=== PATIENT | female | born 1980 | race American Indian/Alaskan Native ===

== ENCOUNTER 2018-01-01 23:41 | Emergency (ER) | payer SELFPAY ==
[2018-01-02] MEDS ORDERED: XYLOCAINE 1% 20 mL INFILTRATI ONE (00:55)
[2018-01-02] MEDS ORDERED: VALIUM IV ONE (00:55)
[2018-01-02] MEDS ORDERED: ATIVAN ONE (01:02)
--- NOTE | 2018-01-02 01:02 | XRay Report ---
FINAL REPORT EXAM: XR SHOULDER 2+V RT HISTORY: right shoulder pain s/p fall, severe TECHNIQUE: Three views of the right shoulder: AP internal, external and transscapular Y projections. PRIORS: None. FINDINGS: There is no acute fracture. The right humeral head is anteriorly and inferiorly dislocated relative to the glenoid. There is no definite osseous Bankart or Hill-Sachs injury on the current exam. The coracoclavicular and acromioclavicular intervals are maintained and there is no significant degenerative or inflammatory arthropathy identified. IMPRESSION: Anterior right shoulder dislocation, no acute fracture identified. Follow-up radiographs after clinical reduction recommended.
--- NOTE | 2018-01-02 01:07 | Emergency Department Report ---
ED Upper Extremity Inj HPI - General Chief Complaint: Extremity Injury, Upper Stated Complaint: DISLOCATED SHOULDER, CHEST PAIN FOOR PAIN Time Seen by Provider: 01/02/18 00:40 Source: patient Mode of arrival: Ambulatory Limitations: No Limitations - History of Present Illness Initial Comments: Fell backwards down the steps and had pain in her right shoulder. She got onto steps. Afterwards, she was unable to move her right arm without intense pain. She has never disappears short of before. [id number]. No loss of consciousness. - Related Data Previous Rx's Medication Instructions Recorded Last Taken Type RX: traMADol [Ultram 50 MG tab] 50 mg PO Q6HR PRN #6 tablet 01/02/18 Unknown Rx Allergies Allergy/AdvReac Type Severity Reaction Status Date / Time No Known Allergies Allergy Unverified 01/02/18 00:23 ED Review of Systems ROS: Stated complaint: DISLOCATED SHOULDER, CHEST PAIN FOOR PAIN Other details as noted in HPI Respiratory: denies: cough, shortness of breath, wheezing Cardiovascular: denies: chest pain, palpitations Musculoskeletal: arthralgia, myalgia Skin: denies: rash, lesions Neurological: denies: headache, weakness, paresthesias ED Past Medical Hx - Past Medical History Previous Medical History?: Yes Hx Asthma: Yes - Surgical History Past Surgical History?: Yes Additional Surgical History: ACLB/L knees - Social History Smoking Status: Never Smoker Substance Use Type: None - Medications Home Medications: Home Medications Medication Instructions Recorded Confirmed Last Taken Type RX: traMADol [Ultram 50 MG tab] 50 mg PO Q6HR PRN #6 tablet 01/02/18 Unknown Rx ED Physical Exam - General Limitations: No Limitations General appearance: alert, in no apparent distress - Head Head exam: Present: atraumatic, normocephalic - Eye Eye exam: Present: normal appearance - ENT ENT exam: Present: mucous membranes moist - Neck Neck exam: Present: normal inspection - Respiratory Respiratory exam: Present: normal lung sounds bilaterally. Absent: respiratory distress - Cardiovascular Cardiovascular Exam: Present: regular rate, normal rhythm. Absent: systolic murmur, diastolic murmur, rubs, gallop - GI/Abdominal GI/Abdominal exam: Present: soft, normal bowel sounds - Extremities Exam Extremities exam: Present: normal inspection - Expanded Upper Extremity Exam Right Shoulder Exam: Present: tenderness, deformity, dislocation Vascular: Present: normal capillary refill, radial pulse - Back Exam Back exam: Present: normal inspection - Neurological Exam Neurological exam: Present: alert, oriented X3 - Psychiatric Psychiatric exam: Present: normal affect, normal mood - Skin Skin exam: Present: warm, dry, intact, normal color. Absent: rash ED Course Vital Signs 01/02/18 01/02/18 00:17 01:25 Temperature 98.0 F Pulse Rate 83 80 Respiratory 20 16 Rate Blood Pressure 104/70 O2 Sat by Pulse 100 99 Oximetry - Orthopedic Joint Reduction Joint #1 Consent Obtained: written consent Time Out Performed: Yes Side: right Joint Reduction Location: shoulder Analgesia: other (1 mg ativan) Local Anesthetic Used: Lidocaine 1% Shoulder Technique Used (if applicable): traction/counter-traction, external rotation Post-Reduction Neuro Exam: intact Post-Reduction Vascular Exam: intact Post Reduction X-Ray Obtained: Yes Post Reduction X-Ray Results: reduced Splint Applied: Yes Patient Tolerated Procedure: well, no complications ED Medical Decision Making - Medical Decision Making 37-year-old female in no significant past medical history presents with right anterior shoulder dislocation. Patient was neurovascularly intact. There is reduced at the bedside using traction countertraction and external rotation. Postreduction films confirmed reduction. Patient was placed in sling and swath. She was given orthopedic follow-up. Repeat neuro neurovascular exam was intact. Clear for discharge. - Differential Diagnosis fracture, dislocation, subluxation, contusion Critical care attestation.: If time is entered above; I have spent that time in minutes in the direct care of this critically ill patient, excluding procedure time. ED Disposition Clinical Impression: Shoulder dislocation Disposition: DC-01 TO HOME OR SELFCARE Is pt being admited?: No Condition: Stable Instructions: Shoulder Dislocation (ED) Additional Instructions: Follow up with orthopedics within 1 week for re-evaluation. Wear the sling until you have been seen by them. Prescriptions: RX: traMADol [Ultram 50 MG tab] 50 mg PO Q6HR PRN #6 tablet PRN Reason: Pain Referrals: ADILENE LANDON MD [Staff Physician] - 3-5 Days
[2018-01-02] MEDS ORDERED: ULTRAM PO ONE (01:54)
--- NOTE | 2018-01-02 02:06 | XRay Report ---
FINAL REPORT EXAM: XR SHOULDER 1V RT HISTORY: Postreduction film TECHNIQUE: Single internally rotated AP projection of the right shoulder. PRIORS: Prior radiographs dated 01/01/2018 at 1841 hours. FINDINGS: Interval reduction of the previously noted anterior right shoulder dislocation. There is no large Hill-Sachs or obvious osseous Bankart injury. The acromioclavicular and coracoclavicular intervals are maintained. IMPRESSION: Interval reduction of the prior right shoulder dislocation. Comment: Non urgent orthopedic surgery consultation is requested. If concern for labral injury or intra-articular pathology, dedicated MRI can further evaluate.
[2018-01-02] MEDS ORDERED: ATIVAN IV ONE (02:19)
[2018-01-02 03:20] VITALS: BP 128/67
== END 2018-01-02 02:15 | disposition home or self-care (01) ==
LOC: ED 23:41
DX: S43.004A Unspecified dislocation of right shoulder joint, initial encounter (principal); W10.9XXA Fall (on) (from) unspecified stairs and steps, initial encounter; Y93.89 Activity, other specified; Y92.89 Other specified places as the place of occurrence of the external cause; Y99.8 Other external cause status
CPT/HCPCS: 23650; 73020; 73030; 96374; 96375; 99284; J2060